=== PATIENT | female | born 1995 | race African-American/Black ===

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

== ENCOUNTER 2017-05-27 09:24 | Emergency (ER) | payer MEDICAID ==
[~2017-05-27] VITALS: Ht 177.8 cm; Wt 90.0 kg
[~2017-05-27 09:24] MED LIST changes: -DIFL150T PO; +FLUC150T PO; +IRON18TA2 PO; -NEXI20CA PO
[2017-05-27 09:26] VITALS: BP 138/80; PULSE 82; RESP 16; TEMP 98.4; O2SAT 98
[2017-05-27] MEDS ORDERED: SODIUM CHLOR 0.9% 1000 ML INJ 1,000 ML IV ONE (10:00)
[2017-05-27] MEDS ORDERED: KETOROLAC TROMETHAMINE 30 MG/ML (IVP) VIAL IV PUSH ONE (10:00)
[2017-05-27] MEDS ORDERED: ONDANSETRON HCL 4 MG/2 ML VIAL IV PUSH ONE (10:00)
[2017-05-27 10:19] LABS: AUTOMATED NEUTROPHIL # 4.4 TH/MM3 (1.8-7.7); BASOPHIL # 0.1 TH/MM3 (0-0.2); BASOPHIL % 0.8 % (0.0-2.0); EOSINOPHIL # 0.4 TH/MM3 (0-0.4); EOSINOPHIL % 4.1 % (0.0-4.0); HEMATOCRIT 29.3 % (35.0-46.0); LYMPH % 40.7 % (9.0-44.0); LYMPHOCYTE # 3.9 TH/MM3 (1.0-4.8); MEAN CELL VOLUME 68.3 FL (80.0-100.0); MEAN CORPUSCULAR HEMOGLOBIN 20.9 PG (27.0-34.0); MEAN CORPUSCULAR HGB CONC 30.6 % (32.0-36.0); MONO % 8.8 % (0.0-8.0); NEUT % 45.6 % (16.0-70.0); PLATELET COUNT 646 TH/MM3 (150-450); RED BLOOD COUNT 4.29 MIL/MM3 (4.00-5.30); RED CELL DISTRIBUTION WIDTH 20.7 % (11.6-17.2); WHITE BLOOD COUNT 9.7 TH/MM3 (4.0-11.0)
[2017-05-27 10:21] LABS: HEMO FLAGS AUTO DIFF
[2017-05-27 10:35] LABS: BLOOD, URINE SMALL (NEG); GLUCOSE,URINE NEG (NEG); KETONE, URINE NEG (NEG); NITRITE,URINE NEG (NEG); PH, URINE 6.5 (5.0-8.5); SQUAMOUS EPITHELIAL CELL URINE 3 /hpf (0-5); TRANSITIONAL EPI CELLS, URINE <1 /hpf; URINE COLOR LIGHT-YELLOW (YELLW/STRAW)
[2017-05-27 10:36] LABS: BACTERIA, URINE FEW /hpf
[2017-05-27 10:37] LABS: COMMENT (UR) CULT NOT INDICATED; CULTURE IF INDICATED CULT NOT INDICATED
[2017-05-27 10:54] LABS: ALT (GPT) 14 U/L (9-42); ANION GAP 3 MEQ/L (5-15); AST (GOT) 10 U/L (16-38); BICARBONATE 26.6 MEQ/L (21.0-32.0); BLOOD UREA NITROGEN 8 MG/DL (7-18); CHLORIDE 109 MEQ/L (98-107); GLOMERULAR FILTRATION RATE 157 ML/MIN (>89); POTASSIUM 4.2 MEQ/L (3.5-5.1); SODIUM (NA) 139 MEQ/L (136-145)
[2017-05-27 10:56] LABS: ALKALINE PHOSPHATASE 55 U/L (45-117); TOTAL BILIRUBIN ADULT 0.2 MG/DL (0.2-1.0)
[2017-05-27 10:57] LABS: PLATELET MORPHOLOGY ENLARGED (NORMAL); SCAN/DIFF AUTO DIFF CONFIRMED
--- NOTE | 2017-05-27 11:47 | PD ---
HPI Chief Complaint: Cold / Flu Symptoms Time Seen by Provider: 09:39 Travel History International Travel<30 days: No Contact w/Intl Traveler<30days: No Traveled to known affect area: No History of Present Illness HPI Patient is a 22 year old female who comes in complaining of "I feel like I have the flu." She says that last week she vomited, but has not since then. She says she just feels very tired and she has a cold. She says she has felt like she had a fever, but she has not taken her temperature. She denies cough, SOB, abdominal pain. PFSH Past Medical History Asthma: No Autoimmune Disease: No Blood Disorders: No Anxiety: No Depression: No Heart Rhythm Problems: No Cardiovascular Problems: No Cystic Fibrosis: No Diminished Hearing: No Hiatal Hernia: No Hypertension: No Musculoskeletal: No Neurologic: No Psychiatric: No Reproductive: No Respiratory: No Migraines: No Seizures: No Sleep Apnea: No ?: Not LMP: CURRENTLY Past Surgical History Surgical History: No Previous Surgery Abdominal Surgery: No Ear Surgery: No Endocrine Surgery: No Eye Surgery: No Genitourinary Surgery: No Gynecologic Surgery: No Neurologic Surgery: No Oral Surgery: No Other Surgery: No Social History Alcohol Use: Yes Tobacco Use: Yes (2 CIGS) Substance Use: No Allergies-Medications (Allergen,Severity, Reaction): Coded Allergies: banana (Unverified Allergy, Mild, 05/27/17) itchy throat mustard (Unverified Allergy, Mild, itchy throat, 05/27/17) ipratropium (Unverified Allergy, Unknown, itchy throat, 05/27/17) Uncoded Allergies: Cheeries (Allergy, Unknown, itchy throat, 12/13/14) Reported Meds & Prescriptions Reported Meds & Active Scripts Active No Active Prescriptions or Reported Medications Review of Systems Except as stated in HPI: all other systems reviewed are Neg General / Constitutional: Positive: Fever, No: Chills Eyes: No: Blurred Vision HENT: Positive: Headaches, Congestion, No: Sore Throat Cardiovascular: No: Chest Pain or Discomfort Respiratory: No: Shortness of Breath Gastrointestinal: Positive: Nausea, No: Abdominal Pain Genitourinary: No: Dysuria Skin: No Rash, No Change in Pigmentation Neurologic: No: Weakness, Dizziness Physical Exam Narrative GENERAL: Awake and alert, in no acute distress. SKIN: Focused skin assessment warm/dry. HEAD: Atraumatic. Normocephalic. EYES: Pupils equal and round. No scleral icterus. No injection or drainage. ENT: Mucous membranes pink and moist. NECK: Trachea midline. No JVD. CARDIOVASCULAR: Regular rate and rhythm. No murmur appreciated. RESPIRATORY: No accessory muscle use. Clear to auscultation. Breath sounds equal bilaterally. GASTROINTESTINAL: Abdomen soft, non-tender, nondistended. MUSCULOSKELETAL: No obvious deformities. No clubbing. No cyanosis. No edema. NEUROLOGICAL: Awake and alert. No obvious cranial nerve deficits. Motor grossly within normal limits. Normal speech. PSYCHIATRIC: Appropriate mood and affect; insight and judgment normal. Data Data Last Documented VS Vital Signs Date Time Temp Pulse Resp B/P (MAP) Pulse Ox O2 Delivery O2 Flow Rate FiO2 05/27/17 09:26 98.4 82 16 138/80 (99) 98 Orders Orders Iv Access Insert/Monitor (05/27/17 09:46) Complete Blood Count With Diff (05/27/17 09:46) Comprehensive Metabolic Panel (05/27/17 09:46) Urinalysis - C+S If Indicated (05/27/17 09:46) Ed Urine Pregnancytest Poc (05/27/17 09:46) Sodium Chlor 0.9% 1000 Ml Inj (Ns 1000 M (05/27/17 10:00) Ketorolac Inj (Toradol Inj) (05/27/17 10:00) Ondansetron Inj (Zofran Inj) (05/27/17 10:00) Influenzae A/B Antigen (05/27/17 09:46) Labs Laboratory Tests Test 05/27/17 10:00 05/27/17 10:31 White Blood Count 9.7 TH/MM3 Red Blood Count 4.29 MIL/MM3 Hemoglobin 9.0 GM/DL Hematocrit 29.3 % Mean Corpuscular Volume 68.3 FL Mean Corpuscular Hemoglobin 20.9 PG Mean Corpuscular Hemoglobin Concent 30.6 % Red Cell Distribution Width 20.7 % Platelet Count 646 TH/MM3 Mean Platelet Volume 7.8 FL Neutrophils (%) (Auto) 45.6 % Lymphocytes (%) (Auto) 40.7 % Monocytes (%) (Auto) 8.8 % Eosinophils (%) (Auto) 4.1 % Basophils (%) (Auto) 0.8 % Neutrophils # (Auto) 4.4 TH/MM3 Lymphocytes # (Auto) 3.9 TH/MM3 Monocytes # (Auto) 0.8 TH/MM3 Eosinophils # (Auto) 0.4 TH/MM3 Basophils # (Auto) 0.1 TH/MM3 CBC Comment AUTO DIFF Differential Comment AUTO DIFF CONFIRMED Platelet Morphology Comment ENLARGED Urine Color LIGHT-YELLOW Urine Turbidity HAZY Urine pH 6.5 Urine Specific [place] 1.016 Urine Protein NEG mg/dL Urine Glucose (UA) NEG mg/dL Urine Ketones NEG mg/dL Urine Occult Blood SMALL Urine Nitrite NEG Urine Bilirubin NEG Urine Urobilinogen LESS THAN 2.0 MG/DL Urine Leukocyte Esterase NEG Urine RBC LESS THAN 1 /hpf Urine WBC 2 /hpf Urine Squamous Epithelial Cells 3 /hpf Urine Transitional Epithelial Cells <1 /hpf Urine Bacteria FEW /hpf Microscopic Urinalysis Comment CULT NOT INDICATED Blood Urea Nitrogen 8 MG/DL Creatinine 0.59 MG/DL Random Glucose 86 MG/DL Total Protein 7.0 GM/DL Albumin 3.1 GM/DL Calcium Level 8.4 MG/DL Alkaline Phosphatase 55 U/L Aspartate Amino Transf (AST/SGOT) 10 U/L Alanine Aminotransferase (ALT/SGPT) 14 U/L Total Bilirubin 0.2 MG/DL Sodium Level 139 MEQ/L Potassium Level 4.2 MEQ/L Chloride Level 109 MEQ/L Carbon Dioxide Level 26.6 MEQ/L Anion Gap 3 MEQ/L Estimat Glomerular Filtration Rate 157 ML/MIN [facility] Medical Decision Making Medical Screen Exam Complete: Yes Emergency Medical Condition: Yes Differential Diagnosis URI vs influenza vs anemia Narrative Course Patient is a 22 year old female who comes in complaining of "the flu." Exam shows no acute abnormalities. IV established, labs sent. Labs show a Hgb of 9. Influenza swab is negative. Given IVF and Toradol. Patient has history of anemia, she is supposed to take Iron supplements. She is advised to restart her iron. Advised to follow up with a primary care doctor. Advised to return to the ED as needed for any worsening symptoms. Diagnosis Primary Impression: Viral illness Patient Instructions: General Instructions, Viral Syndrome (ED) Additional Instructions: Drink plenty of fluids. Restart your iron supplements. Follow up with a primary care doctor. Return to the ED as needed for any worsening symptoms. Scripts No Active Prescriptions or Reported Meds Disposition: 01 DISCHARGE HOME Condition: Stable Ginger Cerna MD May 27, 2017 11:46
== END 2017-05-27 11:57 | disposition home or self-care (01) ==
LOC: NEPD 09:24
DX: B34.9 Viral infection, unspecified (principal); D64.9 Anemia, unspecified; F17.210 Nicotine dependence, cigarettes, uncomplicated
CPT/HCPCS: 80053; 81001; 84703; 85025; 87804; 96374; 96375; 99284; J1885; J2405; J7030

== ENCOUNTER 2017-06-15 14:00 | Emergency (ER) | payer MEDICAID ==
[~2017-06-15] VITALS: Ht 175.3 cm; Wt 98.0 kg
[2017-06-15 14:02] VITALS: BP 146/81; PULSE 90; RESP 20; TEMP 98.9; O2SAT 96
--- NOTE | 2017-06-15 15:01 | PD ---
HPI Chief Complaint: Pain: Acute or Chronic Time Seen by Provider: 14:55 Travel History International Travel<30 days: No Contact w/Intl Traveler<30days: No Traveled to known affect area: No History of Present Illness HPI Patient comes in complaining of a cramping pain in her suprapubic area that began this morning. Pain radiates to her back and down her legs. Patient denies anything making this better, but she did try taking Tylenol for this. Pain is worse with lying down flat. Patient reports she is on her menstrual cycle pain feels different from her normal menstrual cramps. Patient denies any other vaginal discharge. Denies any fevers, chest pain, shortness breath, headaches, , or recent antibiotic use. Patient does report 2 episodes of nonbilious and nonbloody vomiting as well as some loose stools morning that was nonbloody and without melena. Patient reports she been taking her iron supplements for her iron deficiency anemia. Patient denies any trauma. [facility] Past Medical History Anemia: Yes Asthma: No Autoimmune Disease: No Blood Disorders: No Anxiety: No Depression: No Heart Rhythm Problems: No Cardiovascular Problems: No Cystic Fibrosis: No Diminished Hearing: No Hiatal Hernia: No Hypertension: No Musculoskeletal: No Neurologic: No Psychiatric: No Reproductive: No Respiratory: No Migraines: No Seizures: No Sleep Apnea: No ?: Not LMP: 06/10/17 Past Surgical History Surgical History: No Previous Surgery Abdominal Surgery: No Ear Surgery: No Endocrine Surgery: No Eye Surgery: No Genitourinary Surgery: No Gynecologic Surgery: No Neurologic Surgery: No Oral Surgery: No Other Surgery: No Social History Alcohol Use: Yes Tobacco Use: Yes (2 CIGS) Substance Use: No Allergies-Medications (Allergen,Severity, Reaction): Coded Allergies: banana (Unverified Allergy, Mild, 06/15/17) itchy throat mustard (Unverified Allergy, Mild, itchy throat, 06/15/17) ipratropium (Unverified Allergy, Unknown, itchy throat, 06/15/17) Uncoded Allergies: Cheeries (Allergy, Unknown, itchy throat, 12/13/14) Reported Meds & Prescriptions Reported Meds & Active Scripts Active No Active Prescriptions or Reported Medications Review of Systems Except as stated in HPI: all other systems reviewed are Neg Physical Exam Narrative GENERAL: Well-developed, overly nourished, in no acute distress, and non-ill appearing. SKIN: Focused skin assessment warm and dry. HEAD: Atraumatic. Normocephalic. EYES: Pupils equal and round. EOMI. No scleral icterus. No injection or drainage. ENT: No nasal bleeding or discharge. Mucous membranes pink and moist. NECK: Trachea midline. Supple. No nuclear rigidity. CARDIOVASCULAR: Regular rate and rhythm. No murmur appreciated. RESPIRATORY: No accessory muscle use. No respiratory distress. Clear to auscultation. Breath sounds equal bilaterally. GASTROINTESTINAL: Abdomen soft, nondistended, and no guarding. Hepatic and splenic margins not palpable. Normal bowel sounds 4. No pulsatile mass. Patient reports tenderness suprapubic area. No CVA tenderness. GENITOURINARY: Normal external genitalia without lesions or erythema. Vaginal vault with small amount of blood. No cervical motion tenderness. Uterus nontender and nonenlarged. Bilateral adnexa nontender without masses. Exam was performed with presence of staff internist office based onlyFERNIE Iniguez at all times. MUSCULOSKELETAL: No obvious deformities. No clubbing. No cyanosis. No edema. Full range of motion. NEUROLOGICAL: Awake and alert. No obvious cranial nerve deficits. Motor grossly within normal limits. Normal speech. PSYCHIATRIC: Appropriate mood and affect; insight and judgment normal. Data Data Last Documented VS Vital Signs Date Time Temp Pulse Resp B/P (MAP) Pulse Ox O2 Delivery O2 Flow Rate FiO2 06/15/17 17:57 06/15/17 14:55 16 06/15/17 14:02 98.9 90 96 Room Air Orders Orders Complete Blood Count With Diff (06/15/17 14:55) Comprehensive Metabolic Panel (06/15/17 14:55) Urinalysis - C+S If Indicated (06/15/17 14:55) Ua Includes Microscopic (06/15/17 14:55) Iv Access Insert/Monitor (06/15/17 14:55) Ecg Monitoring (06/15/17 14:55) Cath For Specimen (06/15/17 14:55) Ed Urine Pregnancytest Poc (06/15/17 14:55) Lipase (06/15/17 14:55) Sodium Chlor 0.9% 1000 Ml Inj (Ns 1000 M (06/15/17 15:15) Gc And Chlamydia Pcr (06/15/17 15:17) Wet Prep Profile (06/15/17 15:17) Us Pelvis Comp W Dop Transvag (06/15/17 ) Ed Discharge Order (06/15/17 17:47) Labs Laboratory Tests Test 06/15/17 15:05 06/15/17 15:40 06/15/17 16:25 White Blood Count 10.3 TH/MM3 Red Blood Count 4.03 MIL/MM3 Hemoglobin 8.8 GM/DL Hematocrit 27.6 % Mean Corpuscular Volume 68.5 FL Mean Corpuscular Hemoglobin 21.9 PG Mean Corpuscular Hemoglobin Concent 32.1 % Red Cell Distribution Width 20.0 % Platelet Count 484 TH/MM3 Mean Platelet Volume 8.1 FL Neutrophils (%) (Auto) 73.3 % Lymphocytes (%) (Auto) 17.8 % Monocytes (%) (Auto) 6.6 % Eosinophils (%) (Auto) 1.7 % Basophils (%) (Auto) 0.6 % Neutrophils # (Auto) 7.5 TH/MM3 Lymphocytes # (Auto) 1.8 TH/MM3 Monocytes # (Auto) 0.7 TH/MM3 Eosinophils # (Auto) 0.2 TH/MM3 Basophils # (Auto) 0.1 TH/MM3 CBC Comment DIFF FINAL Differential Comment Blood Urea Nitrogen 7 MG/DL Creatinine 0.67 MG/DL Random Glucose 89 MG/DL Total Protein 7.8 GM/DL Albumin 3.5 GM/DL Calcium Level 9.5 MG/DL Alkaline Phosphatase 58 U/L Aspartate Amino Transf (AST/SGOT) 23 U/L Alanine Aminotransferase (ALT/SGPT) 16 U/L Total Bilirubin 0.2 MG/DL Sodium Level 138 MEQ/L Potassium Level 3.8 MEQ/L Chloride Level 106 MEQ/L Carbon Dioxide Level 26.0 MEQ/L Anion Gap 6 MEQ/L Estimat Glomerular Filtration Rate 136 ML/MIN Lipase 153 U/L Urine Color YELLOW Urine Turbidity HAZY Urine pH 7.5 Urine Specific [place] 1.018 Urine Protein NEG mg/dL Urine Glucose (UA) NEG mg/dL Urine Ketones NEG mg/dL Urine Occult Blood MOD Urine Nitrite NEG Urine Bilirubin NEG Urine Urobilinogen LESS THAN 2.0 MG/DL Urine Leukocyte Esterase NEG Urine RBC 71 /hpf Urine WBC 1 /hpf Urine Squamous Epithelial Cells <1 /hpf Urine Amorphous Sediment RARE Urine Bacteria OCC /hpf Microscopic Urinalysis Comment CULT NOT INDICATED Clue Cells (Wet Prep) NS Vaginal Trichomonas (Wet Prep) NS Vaginal Yeast (Wet Prep) NS Chlamydia trachomatis DNA (PCR) NOT DETECTED Neisseria gonorrhoeae DNA (PCR) NOT DETECTED MDM Medical Decision Making Medical Screen Exam Complete: Yes Emergency Medical Condition: Yes Interpretation(s) Pelvic Ultrasound ordered by the radiologist shows: 1. Small amount complex fluid in the endometrial canal is probably related to the phase of menses. 2. Multiple ovarian follicular type cysts. 3. Moderate amount of free fluid in the cul-de-sac and around the left adnexa, well within the range of physiologic for a menstruating female Laboratory Tests Test 06/15/17 15:05 06/15/17 15:40 06/15/17 16:25 White Blood Count 10.3 TH/MM3 (4.0-11.0) Red Blood Count 4.03 MIL/MM3 (4.00-5.30) Hemoglobin 8.8 GM/DL (11.6-15.3) Hematocrit 27.6 % (35.0-46.0) Mean Corpuscular Volume 68.5 FL (80.0-100.0) Mean Corpuscular Hemoglobin 21.9 PG (27.0-34.0) Mean Corpuscular Hemoglobin Concent 32.1 % (32.0-36.0) Red Cell Distribution Width 20.0 % (11.6-17.2) Platelet Count 484 TH/MM3 (150-450) Mean Platelet Volume 8.1 FL (7.0-11.0) Neutrophils (%) (Auto) 73.3 % (16.0-70.0) Lymphocytes (%) (Auto) 17.8 % (9.0-44.0) Monocytes (%) (Auto) 6.6 % (0.0-8.0) Eosinophils (%) (Auto) 1.7 % (0.0-4.0) Basophils (%) (Auto) 0.6 % (0.0-2.0) Neutrophils # (Auto) 7.5 TH/MM3 (1.8-7.7) Lymphocytes # (Auto) 1.8 TH/MM3 (1.0-4.8) Monocytes # (Auto) 0.7 TH/MM3 (0-0.9) Eosinophils # (Auto) 0.2 TH/MM3 (0-0.4) Basophils # (Auto) 0.1 TH/MM3 (0-0.2) CBC Comment DIFF FINAL Differential Comment Blood Urea Nitrogen 7 MG/DL (7-18) Creatinine 0.67 MG/DL (0.50-1.00) Random Glucose 89 MG/DL (74-106) Total Protein 7.8 GM/DL (6.4-8.2) Albumin 3.5 GM/DL (3.4-5.0) Calcium Level 9.5 MG/DL (8.5-10.1) Alkaline Phosphatase 58 U/L (45-117) Aspartate Amino Transf (AST/SGOT) 23 U/L (16-38) Alanine Aminotransferase (ALT/SGPT) 16 U/L (9-42) Total Bilirubin 0.2 MG/DL (0.2-1.0) Sodium Level 138 MEQ/L (136-145) Potassium Level 3.8 MEQ/L (3.5-5.1) Chloride Level 106 MEQ/L (98-107) Carbon Dioxide Level 26.0 MEQ/L (21.0-32.0) Anion Gap 6 MEQ/L (5-15) Estimat Glomerular Filtration Rate 136 ML/MIN (>89) Lipase 153 U/L (73-393) Urine Color YELLOW (YELLW/STRAW) Urine Turbidity HAZY (CLEAR) Urine pH 7.5 (5.0-8.5) Urine Specific [place] 1.018 (1.002-1.035) Urine Protein NEG mg/dL (NEG-TRACE) Urine Glucose (UA) NEG mg/dL (NEG) Urine Ketones NEG mg/dL (NEG) Urine Occult Blood MOD (NEG) Urine Nitrite NEG (NEG) Urine Bilirubin NEG (NEG) Urine Urobilinogen LESS THAN 2.0 MG/DL (LESS Urine Leukocyte Esterase NEG (NEG) Urine RBC 71 /hpf (0-3) Urine WBC 1 /hpf (0-5) Urine Squamous Epithelial Cells <1 /hpf (0-5) Urine Amorphous Sediment RARE Urine Bacteria OCC /hpf (NONE) Microscopic Urinalysis Comment CULT NOT INDICATED Clue Cells (Wet Prep) NS (NONE) Vaginal Trichomonas (Wet Prep) NS (NONE) Vaginal Yeast (Wet Prep) NS (NONE) Differential Diagnosis PID, ectopic , UTI, ovarian cyst, electrolyte abnormality, endometriosis, STD, other Narrative Course The patient presented with lower abdominal/pelvic pain and the patient was accordingly mildly tender. The patient otherwise appeared comfortable and hydrated. Urine analysis revealed no evidence of or UTI. There was no evidence of cervicitis or PID or TOA. History and exam/evaluation not consistent with acute appendicitis either at this time. Pain is clinically suspicious for ovarian cyst and history, exam and ultrasound revealed no clinical evidence or picture to support acute ovarian torsion at this time. The patient appears comfortable and no distress and no vomiting. The patient is to return if worsens, pain worsens or changes, develop persistent fever, inability to tolerate fluids with or without vomiting, unable to establish follow up or as needed. There was no evidence of an acute, surgical abdomen at this time. There was no clinical evidence to support cholecystitis/cholelithiasis, pancreatitis, perforation of gastric ulcer, colitis, diverticulitis, obstruction , volvulus, early appendicitis, or hernial incarceration or strangulation at this time. There was no evidence to support vascular pathology such as AAA, mesenteric ischemia, nor GIB. There was also no clinical evidence by history, exam or risk factors to suggest atypical presentation of cardiac disease such as ACS, AMI or atypical angina. No evidence to suggest significant genitourinary pathology as well. The patient agreed with plan of care and management. The patient was instructed to follow up with their physician. Patient in no obvious distress upon re-evaluation. All pertinent laboratory/ Radiology result(s) discussed with patient with exception of the gonorrhea and chlamydia that is currently pending. Suspect blood noted in urine is secondary to patient's menstrual cycle and is contaminant. Discussed patient with Dr. Tyson prior to discharge, who is in agreement with plan of care and disposition. Any questions/concerns in reference to patient diagnosis/ condition discussed and clarified prior to patient's discharge. 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 Instructed patient to return to ED immediately , if symptoms return/worsen. Patient showed understanding of above instructions. Further instructions and recommendations were detailed in discharge paperwork. Patient ambulated without difficulty out of ED at discharge. Diagnosis Primary Impression: Suprapubic abdominal pain Additional Impression: Ovarian cyst Qualified Codes: N83.209 - Unspecified ovarian cyst, unspecified side Referrals: [facility]kris Simons Patient Instructions: General Instructions, Ovarian Cyst (ED), Pelvic Pain in Women (DC) Additional Instructions: Follow-up with your primary care physician and or SKEIN BANDER this week for reevaluation. Use [id number] Tylenol and/or ibuprofen as needed for pain. Follow instructions on the packaging. Return to the emergency department if symptoms get worse. Scripts No Active Prescriptions or Reported Meds Disposition: 01 DISCHARGE HOME Condition: Stable Beto Rodriguez Jun 15, 2017 15:01
[2017-06-15] MEDS ORDERED: SODIUM CHLOR 0.9% 1000 ML INJ 1,000 ML IV ONE (15:15)
[2017-06-15 15:48] LABS: AUTOMATED NEUTROPHIL # 7.5 TH/MM3 (1.8-7.7); BASOPHIL # 0.1 TH/MM3 (0-0.2); BASOPHIL % 0.6 % (0.0-2.0); EOSINOPHIL # 0.2 TH/MM3 (0-0.4); EOSINOPHIL % 1.7 % (0.0-4.0); HEMATOCRIT 27.6 % (35.0-46.0); HEMOGLOBIN 8.8 GM/DL (11.6-15.3); LYMPH % 17.8 % (9.0-44.0); LYMPHOCYTE # 1.8 TH/MM3 (1.0-4.8); MEAN CELL VOLUME 68.5 FL (80.0-100.0); MEAN CORPUSCULAR HEMOGLOBIN 21.9 PG (27.0-34.0); MEAN CORPUSCULAR HGB CONC 32.1 % (32.0-36.0); MEAN PLATELET VOLUME 8.1 FL (7.0-11.0); MONO % 6.6 % (0.0-8.0); MONOCYTE # 0.7 TH/MM3 (0-0.9); NEUT % 73.3 % (16.0-70.0); PLATELET COUNT 484 TH/MM3 (150-450); RED BLOOD COUNT 4.03 MIL/MM3 (4.00-5.30); WHITE BLOOD COUNT 10.3 TH/MM3 (4.0-11.0)
[2017-06-15 16:10] LABS: ALT (GPT) 16 U/L (9-42)
[2017-06-15 16:13] LABS: ALKALINE PHOSPHATASE 58 U/L (45-117); TOTAL BILIRUBIN ADULT 0.2 MG/DL (0.2-1.0); TOTAL PROTEIN 7.8 GM/DL (6.4-8.2)
[2017-06-15 16:17] LABS: ALBUMIN 3.5 GM/DL (3.4-5.0); AST (GOT) 23 U/L (16-38); BLOOD UREA NITROGEN 7 MG/DL (7-18); CALCIUM 9.5 MG/DL (8.5-10.1); CHLORIDE 106 MEQ/L (98-107); CREATININE 0.67 MG/DL (0.50-1.00); GLOMERULAR FILTRATION RATE 136 ML/MIN (>89); GLUCOSE,RANDOM 89 MG/DL (74-106); LIPASE 153 U/L (73-393); SODIUM (NA) 138 MEQ/L (136-145)
[2017-06-15 16:31] LABS: AMORPHOUS SEDIMENT, URINE RARE; BACTERIA, URINE OCC /hpf; BILIRUBIN, URINE NEG (NEG); BLOOD, URINE MOD (NEG); GLUCOSE,URINE NEG (NEG); KETONE, URINE NEG (NEG); NITRITE,URINE NEG (NEG); PH, URINE 7.5 (5.0-8.5); SQUAMOUS EPITHELIAL CELL URINE <1 /hpf (0-5); URINE COLOR YELLOW (YELLW/STRAW); URINE LEUKOCYTE ESTERASE NEG (NEG)
--- NOTE | 2017-06-15 17:37 | RADRPT ---
EXAM DATE/TIME: 06/15/2017 16:21 [place] COMPARISON: No previous studies available for comparison. INDICATIONS : Pelvic pain. MEDICAL HISTORY : Inflammatory bowel disease. Sickle cell disease. Anemia. SURGICAL HISTORY : None. ENCOUNTER: Initial ACUITY: 1 day PAIN SCORE: 8/10 LOCATION: Bilateral pelvis MEASUREMENTS: UTERUS: 6.7 x 5.7 x 4.4 cm ENDOMETRIAL STRIPE: 13 mm RIGHT OVARY: 3.9 x 2.7 x 2.5 cm LEFT OVARY: 3.4 x 2.9 x 2.7 cm FINDINGS: UTERUS: The myometrium has homogeneous echotexture without mass. Small amount complex fluid in the endometri al canal is probably related to the phase of menses. RIGHT OVARY: Ovary contains no mass or significant cystic lesion. Multiple follicular cysts identified. LEFT OVARY: Ovary contains no mass or significant cystic lesion. Multiple follicular cysts identified MISCELLANEOUS: Moderate amount of free fluid in the cul-de-sac and around the left adnexal region. CONCLUSION: 1. Small amount complex fluid in the endometrial canal is probably related to the phase of menses. 2. Multiple ovarian follicular type cysts. 3. Moderate amount of free fluid in the cul-de-sac and around the left adnexa, well within the range of physiologic for a menstruating female. Bryan Rodriguez MD on June 15, 2017 at 17:32 Board Certified Radiologist. This report was verified electronically.
== END 2017-06-15 17:59 | disposition home or self-care (01) ==
LOC: NEPE 14:00
DX: N83.202 Unspecified ovarian cyst, left side (principal); N83.201 Unspecified ovarian cyst, right side; D64.9 Anemia, unspecified; F17.210 Nicotine dependence, cigarettes, uncomplicated
CPT/HCPCS: 76830; 76856; 80053; 81001; 83690; 84703; 85025; 87210; 87491; 87591; 93975; 99284; J7030